=== PATIENT | female | born 1940 | race Asian ===

== ENCOUNTER 2018-01-07 10:55 | Outpatient (CLI) | payer OTHER ==
[2018-01-07 12:53] LABS: POTASSIUM 6.9 mmol/L (3.6-5.2)
== END 2018-01-07 19:58 | disposition home or self-care (01) ==
LOC: LAB 10:55
PROVIDERS: Family Medicine
DX: E11.9 Type 2 diabetes mellitus without complications (principal); I10 Essential (primary) hypertension; D50.8 Other iron deficiency anemias; E66.8 Other obesity
CPT/HCPCS: 80053; 80061; 83036; 84443